=== PATIENT | female | born 2000 | race Caucasian/White ===

== ENCOUNTER 2021-05-20 05:12 | Inpatient (IN) | payer OTHER ==
[~2021-05-20] VITALS: Ht 165.1 cm; Wt 87.5 kg
[2021-05-20 09:34] LABS: HEMOGLOBIN 10.1 gm/dl (12.3-15.3); RED BLOOD COUNT 3.47 M/UL (4.00-5.10); WHITE BLOOD COUNT 13.5 K/UL (4.5-11.0)
[2021-05-20] MEDS ORDERED: COLACE 100MG C100 MG PO (22:23)
[2021-05-20] MEDS ORDERED: IBUPROFEN600 MG PO (22:23)
[2021-05-21 06:59] LABS: HEMOGLOBIN 9.9 gm/dl (12.3-15.3)
== END 2021-05-22 14:43 | disposition home or self-care (01) | DRG 807 ==
LOC: GENOP 05:12 → OB 08:28 → GENOP 08:38 → OB 08:39
PROVIDERS: ADMIT Obstetrics & Gynecology
PROC: 10E0XZZ Delivery of Products of Conception, External Approach (ICD-10-PCS; principal; 2021-05-20)
PROC: 0KQM0ZZ Repair Perineum Muscle, Open Approach (ICD-10-PCS; 2021-05-20)
PROC: 10907ZC Drainage of Amniotic Fluid, Therapeutic from Products of Conception, Via Natural or Artificial Opening (ICD-10-PCS; 2021-05-20)
PROC: 4A1HXCZ Monitoring of Products of Conception, Cardiac Rate, External Approach (ICD-10-PCS; 2021-05-20)
DX: O62.9 Abnormality of forces of labor, unspecified (principal); Z37.0 Single live birth; Z3A.40 40 weeks gestation of pregnancy; O62.2 Other uterine inertia; O70.1 Second degree perineal laceration during delivery; Z20.822 Contact with and (suspected) exposure to COVID-19
CPT/HCPCS: 36415; 51702; 81001; 85014; 85018; 85025; 90715; 96372; J2210; J2405; J2590; J7120; U0002